=== PATIENT | female | born 1960 | race American Indian/Alaskan Native ===

== ENCOUNTER 2018-02-23 16:56 | Emergency (ER) | payer OTHER, BC ==
--- NOTE | 2018-02-23 17:48 | C.PDOC ---
History Of Present Illness 57 y/o F c 40 pack year smoking history p/w chest pain x 2 hours ago. 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 She took 650mg ASA prior to arrival. States she has never had chest pain before. She denies fever, chills, dyspnea, nausea, vomiting, diaphoresis, pain radiation, dizziness, leg pain or swelling. Time Seen by Provider: 02/23/18 17:21 Chief Complaint (Nursing): Chest Pain Past Medical History Vital Signs: Last Vital Signs Temp 97.6 F 02/23/18 16:56 Pulse 62 02/23/18 16:56 Resp 16 02/23/18 16:56 BP 145/76 02/23/18 16:56 Pulse Ox 98 02/23/18 17:49 - Medical History PMH: Back Problems Denies: Chronic Kidney Disease - [facility] Procedures APPLICATION OF SPLINT (12/10/14) CLOSURE SKIN & SUBCUTANEOUS NEC (12/10/14) OTHER SKIN & SUBQ I D (04/18/13) TETANUS TOXOID ADMINIST (12/10/14) Family History: States: Diabetes - Social History Hx Tobacco Use: Yes (a pack /day) Hx Alcohol Use: No Hx Substance Use: No - Immunization History Hx Tetanus Toxoid Vaccination: Yes Hx Influenza Vaccination: No Hx Pneumococcal Vaccination: Yes Review Of Systems Except As Marked, All Systems Reviewed And Found Negative. Constitutional: Negative for: Fever Respiratory: Negative for: Shortness of Breath Physical Exam - Physical Exam Additional Physical Exam Comments: Gen: NAD Head: NC/AT Eyes: No scleral icterus ENT: MMM Neck: Supple Chest: No reproducible tenderness CV: Regular rate Lungs: CTA b/l Abd: Soft, NT Back: No CVA tenderness Skin: No rash Extremities: No edema Neuro: Alert, no focal deficit ED Course And Treatment - Laboratory Results Result Diagrams: 02/23/18 17:41 02/23/18 17:41 O2 Sat by Pulse Oximetry: 98 Against Medical Advice - AMA Patient Left Against Medical Advice: The patient declines admission to the hospital and wishes to leave the Emergency Department. This action is against my medical advice. This decision was made with informed refusal. The patient was told that admission to the hospital is necessary. Explanation of the reasons why were discussed. The risks of leaving were explained to the patient and include, but are not limited to, worsening of known or currently unknown conditions, permanent disability and from undiagnosed or untreated conditions. The patient has the capacity to make this informed decision and understands my explanation of the current medical problem and risks of leaving. The patient voluntarily accepts these risks and signed an AMA form documenting our conversation. The patient was given the opportunity to ask questions and reconsider. The patient was encouraged to return to the Emergency Department at any time for further care. Medical Decision Making Medical Decision Making: EKG sinus rhythm, 57 bpm, no ST/T wave changes. CXR no consolidation, pleural effusion, or pneumothorax. First set negative. Patient does not wish to stay. Informed patient why 2nd/3rd set required and patient's risk of OK that could lead to or permanent disability. Disposition - Disposition Referrals: Rohan Smalls MD [Medical Doctor] - Disposition: AGAINST MEDICAL ADVICE Disposition Time: 18:25 Condition: UNKNOWN Instructions: Chest Pain, Leaving Against Medical Advice Forms: [facility] (Macedonian), (AMA) Informed Refusal - Clinical Impression Clinical Impression: Chest pain
[2018-02-23 17:53] LABS: BASO # 0.1 K/uL (0.0-0.2); BASO % 0.9 % (0.0-2.0); EOS # 0.1 K/uL (0.0-0.7); EOS % 1.7 % (0.0-4.0); HEMOGLOBIN 12.2 g/dL (11.0-16.0); LYMPH % 49.3 % (20.0-40.0); MEAN CELL VOLUME 86.7 fL (81.0-99.0); MEAN CORPUSCULAR HEMOGLOBIN 28.7 pg (27.0-31.0); MEAN CORPUSCULAR HGB CONC 33.1 g/dL (33.0-37.0); MEAN PLATELET VOLUME 9.1 fL (7.2-11.7); MONO # 0.3 K/uL (0.0-0.8); MONO % 4.6 % (0.0-10.0); NEUT # 2.6 K/uL (1.8-7.0); NEUT % 43.5 % (50.0-75.0); NRBC % 0.1 % (0.0-2.0); RBC 4.23 Mil/uL (3.80-5.20); RED CELL DISTRIBUTION WIDTH 15.6 % (11.5-14.5); WHITE BLOOD COUNT 6.1 K/uL (4.8-10.8)
--- NOTE | 2018-02-23 18:02 | RAD ---
HISTORY: Chest pain. COMPARISON: No prior. FINDINGS: LUNGS: No active pulmonary disease. PLEURA: No significant pleural effusion identified, no pneumothorax apparent. CARDIOVASCULAR: Normal. OSSEOUS STRUCTURES: No significant abnormalities. VISUALIZED UPPER ABDOMEN: Normal. OTHER FINDINGS: None. IMPRESSION: No active disease.
[2018-02-23 18:04] LABS: ALB/GLOB RATIO 1.2 (1.0-2.1); ALBUMIN 4.1 g/dL (3.5-5.0); ALT/SGPT 27 U/L (9-52); AST/SGOT 26 U/L (14-36); BLOOD UREA NITROGEN 17 mg/dL (7-17); CALCIUM 9.4 mg/dl (8.6-10.4); GFR AFRICAN-AMERICAN > 60; GFR NON-AFRICAN AMERICAN > 60
[2018-02-23 18:15] LABS: CK-MB 1.79 ng/mL (0.0-3.38)
[2018-02-23 18:47] VITALS: BP 109/75; PULSE 59; RESP 18; TEMP 98.4; O2SAT 99
--- NOTE | 2018-02-24 20:48 | CARD ---
APPROVED REPORT EKG Measurement Heart [id number] VT [id number] <Conclusion> Sinus bradycardia with sinus arrhythmia Cannot rule out Anterior infarct, age undetermined Abnormal ECG
== END 2018-02-23 18:47 | disposition left against medical advice (07) ==
LOC: C.ER 16:56
DX: R07.9 Chest pain, unspecified (principal)